=== PATIENT | female | born 1940 | race Caucasian/White ===

== ENCOUNTER 2020-12-14 14:47 | Emergency (ER) | payer MEDICARE, SELFPAY ==
[2020-12-14 15:45] VITALS: BP 209/92; PULSE 72; RESP 16; TEMP 36.9; O2SAT 95; BMI 27.3
[2020-12-14 15:52] VITALS: O2SAT 95
--- NOTE | 2020-12-14 16:00 | XRR_ITS ---
PROCEDURE INFORMATION: Exam: XR Nasal Bones Exam date and time: 12/14/2020 4:09 PM Age: 80 years old Clinical indication: Injury or trauma; Fall; Blunt trauma (contusions or hematomas); Injury details: PT tripped and fell over a piece of wood and landed on another piece of wood. Slight pain in nose with laceration to the top TECHNIQUE: Imaging protocol: XR of the nasal bones. Views: Minimum of 3 views COMPARISON: CT head wo con* [id number] 04/21/2017 4:23 PM FINDINGS: Sinuses: Well aerated. No opacification. Bones/joints: Bones are intact and in normal alignment. Dental: Multiple dental crowns and fillings. Soft tissues: Unremarkable. XR/XR nasal bones min 3V [id number] IMPRESSION: No fracture identified.
--- NOTE | 2020-12-14 16:01 | ED_ITS ---
HPI - Head Injury General: Chief complaint: Head Injury Stated complaint: fall, facial lac Time Seen by Provider: 12/14/20 15:51 History of Present Illness: HPI Narrative: Nasal laceration OCD or any other related problems patient tripped in the yard today striking piece of wood with her nose. Has a laceration to her nose. Denies any other problems. Is currently under treatment for hypertension did take her medicine this morning and blood pressure normally runs 140/80 she states. MD Complaint: other Onset (ago): minute(s) Mechanism of Injury: fall Place: home Loss of Consciousness: no Severity: mild Severity scale (1-10): 1 Radiation: none Other Injuries: none Associated symptoms: Reports no associated symptoms; Deny nausea or vomiting Review of Systems Narrative: No neck or head pain Const: Denies: fever(s), chills or body aches Eyes: Denies: change in vision or blurry vision ENMT: Denies: throat pain or nasal congestion Card: Denies: chest pain or dyspnea on exertion Resp: Denies: dyspnea, productive cough or non-productive cough GI: Denies: abdominal pain, nausea or vomiting Musc: Denies: extremity pain Skin/Breast: Reports: other (Laceration of nose and abrasion also.); Denies: rash Neuro: Denies: headache(s) Psych: Denies: anxiety or depression Nikita/Lymph: Denies: easy bruising Physical Exam Const: COMMON NORMALS: no acute distress, average body habitus and patient oriented x3 HENMT: COMMON NORMALS: normocephalic HEAD & SCALP: normal to inspection and normocephalic FACE & SINUS: normal facial exam NOSE: Other nasal findings present (Abrasion to nose plus laceration. Nose appears slightly ajar. Mild tender); no Epistaxis present Eye: COMMON NORMALS: conjunctivae normal GENERAL EYE: appearance normal, both eyes and all related structures CONJUNCTIVA: Yes conjunctivae normal Neck/C-Spine: COMMON NORMALS: no JVD Chest: COMMONS NORMALS: normal inspection of the chest Resp: COMMON NORMALS: normal respiratory effort and clear to auscultation bilaterally AUSCULTATION: clear to auscultation bilaterally Cardio: COMMON NORMALS: no JVD, regular rate and regular rhythm RATE: regular rate RHYTHM: regular rhythm GI: COMMON NORMALS: Normal to inspection, nondistended, normoactive bowel sounds present Extremity: COMMON NORMALS: normal to inspection and full ROM Neuro: COMMON NORMALS: patient oriented x3, moves all extremities, no focal motor deficits and no sensory deficits noted Skin: NARRATIVE SKIN EXAM: Laceration across bridge of nose slightly irregular approximately inch tension quarter in length no active bleeding Procedures Laceration Laceration 1: Site: face Size (cm): 4 Description: linear and irregular Depth: simple, single layer Skin layer closed with: other (Skin adhesive) Course Vital Signs: Vital signs: Vital Signs Temperature 98.4 F 12/14/20 15:45 Pulse Rate 72 12/14/20 15:45 Respiratory Rate 16 12/14/20 15:45 Blood Pressure 209/92 12/14/20 15:45 Pulse Oximetry 95 12/14/20 15:52 MDM - Head Injury MDM Narrative: Medical decision making narrative: Laceration to bridge of nose. No head injury noted. Radiology report not back on whether his nasal fracture not might be a slight displacement underneath the laceration. No active bleeding going on Discharge Plan Discharge Patient Disposition: Home Clinical Impression: Laceration Fall Qualifiers: Encounter type: initial encounter Qualified Code(s): W19.XXXA - Unspecified fall, initial encounter Condition: Stable Discharge Orders: Discharge ED (Routine); Ordered 12/14/20 Ordered By: Omkar Hinojosa Referrals: Angelo Schrader DO [Primary Care Provider] - Discharge Diet: Usual diet Discharge Activity: Resume usual activity Patient Instructions: Skin Adhesive Care (ED) Activity Restrictions/Additional Instructions: Follow-up your primary care provider as needed keep area clean. Radiology will contact you if there is any discrepancies found in the nasal bone x-ray. Apply ice area as needed. Coding Level of Care Code ED Commercial Instructor Supervisor for Fina Fwd Exam Comprehensive
[2020-12-14 16:50] VITALS: BP 196/81; PULSE 65; RESP 18; O2SAT 93
== END 2020-12-14 16:51 | disposition home or self-care (01) ==
PROVIDERS: Emergency Provider Nurse Practitioner Family; PCP Internal Medicine
DX: S01.21XA Laceration without foreign body of nose, initial encounter (principal); W01.198A Fall on same level from slipping, tripping and stumbling with subsequent striking against other object, initial encounter
CPT/HCPCS: 12013; 70160; 99282

== ENCOUNTER 2021-05-22 15:22 | Inpatient (IN) | payer MEDICARE, SELFPAY ==
[2021-05-22] VITALS (45 sets, daily range): BP systolic 102–143; BP diastolic 50–108; PULSE 53–175; RESP 10–30; TEMP 36.6–36.8; O2SAT 89–98; BMI 25.8
--- NOTE | 2021-05-22 15:26 | ECG_ITS ---
[facility] Test Date: 2021-05-22 Pat Name: Meghana Ramirez Department: Room: Gender: Female House Coordinator: : 1940 Requested By: Raza Howard Order Number: [id number] Kelechi MD: Shelly Baker M.D. Measurements Intervals [place] Rate: 160 P: [place]: QRS: 15 QRSD: 85 T: 53 QT: 280 QTc: 458 Interpretive Statements ATRIAL FIBRILLATION WITH RAPID VENTRICULAR RESPONSE MINIMAL VOLTAGE CRITERIA FOR LVH, CONSIDER NORMAL VARIANT [MEETS CRITERIA IN ONE OF: R(aVL), S(V1), R(V5), R(V5/V6)+S(V1)] ST DEPRESSION, CONSIDER SUBENDOCARDIAL INJURY [0.1+ mV ST DEPRESSION] CRITICAL TEST RESULT Compared to ECG 04/21/2017 17:29:51 ST (T wave) deviation now present Sinus rhythm no longer present T-wave abnormality no longer present Electronically Signed On 05-23-2021 7:29:55 DIRECT CHILL CASTER by Shelly Baker M.D. [email or web address].[employer]/store/[id number] coffman
--- NOTE | 2021-05-22 15:41 | XRR_ITS ---
PROCEDURE INFORMATION: Exam: XR Chest Exam date and time: 05/22/2021 3:41 PM Age: 81 years old Clinical indication: Patient HX: Chest fluttering; Elevated hr; Additional info: Dyspnea/cough TECHNIQUE: Imaging protocol: XR of the chest. Views: 1 view. COMPARISON: CR Chest 1 [place] [id number] 04/21/2017 2:25 PM FINDINGS: Lungs: Unremarkable. No consolidation. Pleural spaces: Unremarkable. No pleural effusion. No pneumothorax. Heart/Mediastinum: Borderline cardiomegaly. Bones/joints: Unremarkable. XR/XR chest 1V portable [id number] IMPRESSION: Borderline cardiomegaly, lungs are clear Radiation Dose CTDIVOL = (mGy): DLP = (mGy-cm)
[2021-05-22 15:50] LABS: Basophils % 0.5 %; Eosinophils # 0.1 10^3/uL (0.0-0.8); Eosinophils % 1.4 %; Hematocrit 50.1 % (37.0-47.0); Hemoglobin 16.6 g/dL (11.5-15.3); Lymphocytes # 1.5 10^3/uL (0.8-4.8); Lymphocytes % 20.5 %; Mean Corpuscular HGB Conc 33.1 g/dL (30.0-36.0); Mean Corpuscular Hemoglobin 29.9 pg (28.0-34.0); Mean Corpuscular Volume 90.1 fl (81-99); Mean Platelet Volume 10.5 fL (7.4-10.4); Monocytes # 0.7 10^3/uL (0.2-0.9); Neutrophils # 5.02 10^3/uL (1.8-7.7); Neutrophils % 68.3 %; Nucleated Red Blood Cells % 0 %; Platelet Count 225 10^3/cmm (130-400); Red Blood Count 5.56 10^6/uL (4.1-5.3); Red Cell Distribution Width 13.7 % (12.1-15.1); White Blood Count 7.4 10^3/uL (4.0-10.0)
[2021-05-22 16:28] LABS: Alanine Aminotransferase 24 U/L (0-33); Albumin Level 4.2 g/dL (3.5-5.2); Alkaline Phosphatase 75 IU/L (35-105); Anion Gap 16.1 (5-19); Aspartate Amino Transferase 25 U/L (0-32); Blood Urea Nitrogen 12 mg/dL (8-23); Calcium 9.6 mg/dL (8.5-10.5); Carbon Dioxide 28 mmol/L (22-29); Chloride 98 mmol/L (98-107); Globulin 3.1 g/dL (1.3-4.6); Glucose 165 mg/dL (65-115); Osmolality Calculated 291 mOsm/kg (285-295); Potassium 3.1 mmol/L (3.5-5.1); Sodium 139 mmol/L (136-145); Thyroid Stimulating Hormone 2.35 uIU/mL (0.27-4.20); Total Bilirubin 0.6 mg/dL (0.15-1.2); Total Protein 7.3 g/dL (6.6-8.7)
--- NOTE | 2021-05-22 16:35 | ED_ITS ---
HPI - Chest Pain General: Chief Complaint: Chest Pain Stated Complaint: Fluctuating HR, Dizzy, Pain in R Shoulder and Arm Time Seen by Provider: 05/22/21 15:32 History of Present Illness: HPI narrative: 81-year-old female presents to the emergency room with complaints of fluctuating heart rate dizziness. She has been having this last couple weeks once a weeks of an episode. It is associated with rapid heart rate and discomfort radiating to the neck and bilateral into the shoulders. She has not previously been evaluated for that she has no known history of atrial fibrillation. Not previously in cardiac evaluation she is borderline diabetic and is monitored controlled by diet through primary care provider. Is not had any weakness visual difficulty or speech difficulty. MD complaint: chest pain and chest heaviness Onset (ago): week(s) Timing of current episode: episodic Prior episodes: Yes Onset: during rest Pain location: left chest Pain radiation: right arm, left arm and neck Severity: moderate Quality: tightness, aching and heaviness Relieving factors: nothing Exacerbating factors: nothing Associated symptoms: Deny abdominal pain, diaphoresis, dyspnea, fever(s), leg edema, nausea, palpitations, sense of impending doom, syncope or vomiting Treatment prior to arrival: none Review of Systems Const: Denies: fever(s) or diaphoresis ENMT: Denies: throat pain, ear or mastoid pain, nasal discharge or nasal congestion Card: Denies: palpitations or syncope Resp: Denies: dyspnea GI: Denies: abdominal pain, nausea or vomiting : Denies: flank pain, difficulty voiding, dysuria, urinary frequency or urinary urgency Skin/Breast: Denies: rash or pruritus FORMERLY [facility], 1928–1983 ED PFSH: Medical History (Updated 05/25/21 @ 08:50 by Raza Allan DO) Atrial fibrillation with RVR Diet-controlled diabetes mellitus Hypertension Hypokalemia Left arm pain Near syncope Physical Exam Const: COMMON NORMALS: no acute distress GENERAL APPEARANCE: cooperative and comfortable ORIENTATION/CONSCIOUSNESS: Yes awake, Yes oriented to person, Yes oriented to place and Yes oriented to time HENMT: COMMON NORMALS: normocephalic, atraumatic and hearing grossly normal bilaterally HEAD & SCALP: normocephalic and atraumatic Neck/C-Spine: COMMON NORMALS: no JVD Resp: COMMON NORMALS: normal respiratory effort, No retractions, No use of accessory muscles and clear to auscultation bilaterally AUSCULTATION: clear to auscultation bilaterally Cardio: COMMON NORMALS: no JVD RATE: tachycardic RHYTHM: abnormal rhythm irregularly irregular GI: COMMON NORMALS: Soft to palpation and No hepatosplenomegaly present AUSCULTATION: Yes normoactive bowel sounds PALPATION: Yes Soft to palpation, No Tenderness to palpation present (GI), No Guarding due to palpation present (GI) and Yes No hepatosplenomegaly present Extremity: COMMON NORMALS: normal to inspection, capillary refill normal, no clubbing, cyanosis or edema, no calf tenderness and no pedal edema Neuro: SENSORIUM/ORIENTATION: Yes oriented to person, Yes oriented to place and Yes oriented to time Skin: COMMON NORMALS: no rashes or lesions noted GENERAL SKIN EXAM: no rashes or lesions noted Course Vital Signs: Vital signs: Vital Signs Temperature 98.7 F 05/24/21 15:20 Pulse Rate 58 L 05/24/21 15:20 Respiratory Rate 15 05/24/21 15:20 Blood Pressure 151/70 05/24/21 15:20 Pulse Oximetry 100 05/24/21 15:20 MDM - Chest Pain MDM Narrative: Medical decision making narrative: Patient presents with A. fib with RVR rate controlled with IV Cardizem. She is having some chest discomfort as well overall she is stable. We will go ahead and admit the patient and proceed with further work-up. Discussed with hospitalist orders have been written. Lab Data: Labs: Lab Results 05/22/21 05/22/21 15:40 15:40 WBC 7.4 10^3/uL 10^3/ uL (4.0-10.0) RBC 5.56 10^6/uL H 10 ^6/uL (4.1-5.3) Hgb 16.6 g/dL H g/dL (11.5-15.3) Hct 50.1 % H % (37.0-47.0) MCV 90.1 fl fl (81-99) MCH 29.9 pg pg (28.0-34.0) MCHC 33.1 g/dL g/dL (30.0-36.0) RDW 13.7 % % (12.1-15.1) Plt Count 225 10^3/cmm 10^3 /cmm (130-400) MPV 10.5 fL H fL (7.4-10.4) Neut % (Auto) 68.3 % % Lymph % (Auto) 20.5 % % Brown % (Auto) 9.0 % % Eos % (Auto) 1.4 % % Baso % (Auto) 0.5 % % Neut # (Auto) 5.02 10^3/uL 10^3 /uL (1.8-7.7) Lymph # (Auto) 1.5 10^3/uL 10^3/ uL (0.8-4.8) Brown # (Auto) 0.7 10^3/uL 10^3/ uL (0.2-0.9) Eos # (Auto) 0.1 10^3/uL 10^3/ uL (0.0-0.8) Baso # (Auto) 0.0 10^3/uL 10^3/ uL (0.0-0.1) Nucleated RBC % (a uto) 0 % % Nucleated RBCs # 0.0 /100WBC /100W BC Sodium 139 mmol/L mmol/L (136-145) Potassium 3.1 mmol/L L mmol /L (3.5-5.1) Chloride 98 mmol/L mmol/L (98-107) Carbon Dioxide 28 mmol/L mmol/L (22-29) Anion Gap 16.1 (5-19) BUN 12 mg/dL mg/dL (8-23) Creatinine 0.4 mg/dL L mg/dL (0.5-0.9) GFR Calculation Not Reportable Glucose 165 mg/dL H mg/dL (65-115) Calculated Osmolal ity 291 mOsm/kg mOsm/ kg (285-295) Calcium 9.6 mg/dL mg/dL (8.5-10.5) Total Bilirubin 0.6 mg/dL mg/dL (0.15-1.2) AST 25 U/L U/L (0-32) ALT 24 U/L U/L (0-33) Alkaline Phosphata se 75 IU/L IU/L (35-105) Total Protein 7.3 g/dL g/dL (6.6-8.7) Albumin 4.2 g/dL g/dL (3.5-5.2) Globulin 3.1 g/dL g/dL (1.3-4.6) TSH 2.35 uIU/mL uIU/m L (0.27-4.20) Discharge Plan Discharge Patient Disposition: Admitted As Inpatient Admit Provider: Leon Cuadra Clinical Impression: Atrial fibrillation with rapid ventricular response, Chest pain, Hypertension Condition: Stable Discharge Diet: Regular Discharge Activity: Resume usual activity Coding Level of Care Code ED Property Condition Assessor for Chg Fwd Exam Comprehensive
--- NOTE | 2021-05-22 19:18 | ECG_ITS ---
[facility] Test Date: 2021-05-22 Pat Name: Meghana Ramirez Department: Room: 111 Gender: Female Model Maker Apprentice: : 1940 Requested By: Leon Cudara Order Number: [id number] Lorenz MD: Shelly Baker M.D. Measurements Intervals [place] Rate: 70 P: 35 IN: 158 QRS: -2 QRSD: 87 T: 30 QT: 423 QTc: 459 Interpretive Statements SINUS RHYTHM NONSPECIFIC T-WAVE ABNORMALITY Compared to ECG 05/22/2021 15:35:43 T-wave abnormality now present Atrial fibrillation no longer present ST (T wave) deviation no longer present Electronically Signed On 05-23-2021 7:36:50 WOOD CARVER HAND by Shelly Baker M.D. [id number]
--- NOTE | 2021-05-22 19:19 | PM.HP ---
Providers/Chief Complaint Admitting Physician: Leon Cuadra MD Primary Care Provider: Angelo Schrader DO Chief Complaint: Fluctuating HR, Dizzy, Pain in R Shoulder and Arm History of Present Illness Meghana Ramirez is a 81 year old female with past medical history of hypertension compliant with medication, came in with chief complaint of palpitation, and wide variation in heart rate monitored on her pulse ox at home, going on for last couple of weeks, according to the patient sometimes the heart rate can be as high as 150 and then can settle down to as low/60s.These episodes are happening once or twice a week during these episodes she has dizziness, left-sided arm and neck pain, occasionally also has headache. Upon arrival in the ER she was worked up for above-mentioned complaint. EKG: A. fib with RVR with rate of 160. X-ray chest: Unremarkable Patient was started on Cardizem drip in the ER Review of Systems Const: Denies: fever(s), chills, body aches, change in appetite or diaphoresis Card: Denies: swelling of feet/ankles, dyspnea on exertion, orthopnea or leg pain with exertion Resp: Denies: dyspnea, productive cough, wheezing or pain on inspiration GI: Denies: abdominal pain, nausea, vomiting, diarrhea or constipation : Denies: flank pain Musc: Denies: back pain, extremity pain or extremity swelling Neuro: Denies: difficulty walking or confusion Medications/Allergies Home Medications Medication Instructions Recorded Confirmed Last Taken Type Ctu-Kaa-Sjjp Tabs 1 tab PO BEDTIME 05/22/21 05/22/21 Unknown History ascorbic acid (vitamin C) [Vitamin 500 mg PO QAM 05/22/21 05/22/21 05/22/21 History C] aspirin [Aspir-81] 81 mg PO QAM 05/22/21 05/22/21 05/22/21 History coenzyme Q10 [CoQ-10] 100 mg PO QAM 05/22/21 05/22/21 Unknown History hydrochlorothiazide 12.5 mg PO QAM 05/22/21 05/22/21 05/22/21 08:00 History Allergies Allergy/AdvReac Type Severity Reaction Status Date / Time No Known Allergies Allergy Verified 05/22/21 16:14 Vitals/I&O/Wt Last Vital Signs Temp 98.2 F 05/22/21 15:28 Pulse 63 05/22/21 19:00 Resp 22 H 05/22/21 19:00 BP 102/70 05/22/21 19:00 Pulse Ox 98 05/22/21 19:00 05/22/21 05/22/21 05/22/21 06:59 14:59 22:59 Intake Total 7.334 / 7.334 Balance 7.334 / 7.334 Weight last 48 hrs Weight 74.843 kg Physical Exam Const: COMMON NORMALS: patient oriented x3 HENMT: COMMON NORMALS: normocephalic and atraumatic HEAD & SCALP: normocephalic and atraumatic Resp: COMMON NORMALS: clear to auscultation bilaterally AUSCULTATION: clear to auscultation bilaterally Cardio: COMMON NORMALS: regular rate, regular rhythm, S1 normal heart sound present, S2 normal heart sound present, No gallops present (Cardio), No murmurs present (Cardio), No rub (Cardio) and Peripheral pulses 2+ throughout RATE: regular rate RHYTHM: regular rhythm HEART SOUNDS: S1 normal heart sound present and S2 normal heart sound present PERIPHERAL PULSES: Peripheral pulses 2+ throughout GI: COMMON NORMALS: Normal to inspection, nondistended, normoactive bowel sounds present, Soft to palpation, non-tender, No hepatosplenomegaly present and no masses AUSCULTATION: Yes normoactive bowel sounds PALPATION: Yes Soft to palpation and Yes No hepatosplenomegaly present RECTAL EXAM: deferred Extremity: COMMON NORMALS: no clubbing, cyanosis or edema and no pedal edema Neuro: COMMON NORMALS: patient oriented x3 Data : 05/22/21 15:40 05/22/21 15:40 A&P Assessment and plan (1) Atrial fibrillation with RVR: New onset A. fib with RVR 2D echo: TSH:2.57 Continue Cardizem drip Cardizem 30 mg p.o. every 6 Eliquis 5 mg every 12 hours daily Telemetry monitoring k>4, mg>2 Status: Acute (2) Hypertension: Currently blood pressure is well controlled Continue to monitor Status: Acute Attestations Medical Necessity Statement*: Patient needs to be in hospital for management of A. fib with RVR. Anticipated length of stay greater than 2 midnights Coding Level of Care Code Acute [place] Helper for [facility] Fwd Diagnoses Atrial fibrillation with RVR I48.91 Hypertension I10
[2021-05-22] MEDS: apixaban 5 mg Tablet PO (20:26)
[2021-05-22] MEDS: sotalol 80 mg Tablet PO (20:26)
[2021-05-22 22:00] LABS: Urine Color Yellow (Yellow); pH Urine 5 (5-7)
[2021-05-22 22:01] LABS: Add Urine Microscopic? YES; Bilirubin Urine Neg (Negative); Blood Urine 2+ (Negative); Glucose Urine UA Norm (Normal); Ketones Urine Negative (Negative); Leukocyte Esterase Urine Trace (Negative); Nitrate Urine Negative (Negative); Protein Urine Trace (Negative); Urobilinogen Urine Norm (Negative)
[2021-05-22 22:02] LABS: Add Urine Culture? Yes; Bacteria Urine 4+ /hpf; Squamous Epithelial Cell Urine RARE /hpf (0-5); WBC Urine 25-40 /hpf (0-5)
--- NOTE | 2021-05-22 22:30 | ECG_ITS ---
[facility] Test Date: 2021-05-22 Pat Name: Meghana Ramirez Department: Room: 111 Gender: Female Ingot Weigher: : 1940 Requested By: Leon Cuadra Order Number: [id number] Kelechi MD: Carmel Reyes M.D. Measurements Intervals [place] Rate: 53 P: 63 NV: 181 QRS: 19 QRSD: 86 T: 68 QT: 430 QTc: 405 Interpretive Statements SINUS BRADYCARDIA NONSPECIFIC T-WAVE ABNORMALITY Compared to ECG 05/22/2021 20:21:02 Sinus rhythm no longer present T-wave abnormality still present Electronically Signed On 05-23-2021 20:39:53 HEALTH PROGRAM MANAGER by Carmel Reyes M.D. [email or web address] [email or web address] [email or web address] st. [email or web address] medical [email or web address]/[id number]
[2021-05-23] VITALS (10 sets, daily range): BP systolic 118–190; BP diastolic 51–81; PULSE 47–61; RESP 15–22; TEMP 36.2–37.1; O2SAT 93–98
[2021-05-23] MEDS: aspirin 81 mg EC Tablet PO (03:28)
[2021-05-23 04:03] LABS: Basophils % 0.6 %; Eosinophils # 0.2 10^3/uL (0.0-0.8); Eosinophils % 2.2 %; Hematocrit 43.8 % (37.0-47.0); Hemoglobin 14.3 g/dL (11.5-15.3); Lymphocytes # 1.6 10^3/uL (0.8-4.8); Lymphocytes % 23.5 %; Mean Corpuscular HGB Conc 32.6 g/dL (30.0-36.0); Mean Corpuscular Hemoglobin 29.4 pg (28.0-34.0); Mean Corpuscular Volume 89.9 fl (81-99); Mean Platelet Volume 10.5 fL (7.4-10.4); Monocytes # 0.7 10^3/uL (0.2-0.9); Neutrophils # 4.36 10^3/uL (1.8-7.7); Neutrophils % 63.4 %; Nucleated Red Blood Cells % 0 %; Platelet Count 202 10^3/cmm (130-400); Red Blood Count 4.87 10^6/uL (4.1-5.3); Red Cell Distribution Width 13.9 % (12.1-15.1); White Blood Count 6.9 10^3/uL (4.0-10.0)
[2021-05-23 04:42] LABS: Troponin T (5th) Once 40 ng/L (0-10)
[2021-05-23 04:43] LABS: Alanine Aminotransferase 17 U/L (0-33); Albumin Level 3.5 g/dL (3.5-5.2); Alkaline Phosphatase 59 IU/L (35-105); Anion Gap 13.2 (5-19); Aspartate Amino Transferase 17 U/L (0-32); Blood Urea Nitrogen 22 mg/dL (8-23); Calcium 8.9 mg/dL (8.5-10.5); Carbon Dioxide 27 mmol/L (22-29); Chloride 105 mmol/L (98-107); Globulin 2.2 g/dL (1.3-4.6); Glucose 141 mg/dL (65-115); Magnesium 2.3 mg/dL (1.7-2.3); NT Pro B Type Natriuretic Pept 823 pg/mL (0-450); Osmolality Calculated 300 mOsm/kg (285-295); Potassium 3.2 mmol/L (3.5-5.1); Sodium 142 mmol/L (136-145); Total Bilirubin 0.8 mg/dL (0.15-1.2); Total Protein 5.7 g/dL (6.6-8.7)
--- NOTE | 2021-05-23 07:44 | ECG_ITS ---
[facility] Test Date: 2021-05-23 Pat Name: Meghana Ramirez Department: Room: 111 Gender: Female Employment Training Specialist: : 1940 Requested By: Leon Cuadra Order Number: [id number] Kelechi MD: Carmel Reyes M.D. Measurements Intervals [place] Rate: 57 P: 40 ME: 170 QRS: 12 QRSD: 89 T: 76 QT: 492 QTc: 483 Interpretive Statements SINUS BRADYCARDIA ST DEVIATION AND MODERATE T-WAVE ABNORMALITY, CONSIDER LATERAL ISCHEMIA [-0.1+ mV T WAVE IN I/aVL/V5/V6] Compared to ECG 05/22/2021 22:54:56 Possible ischemia now present T-wave abnormality still present Electronically Signed On 05-23-2021 20:40:40 CALIBRATION CHECKER by Carmel Reyes M.D. [email or web address] sunflower medical centerP-Commercekettering [facility] day[facility].[email or web address]/[id number]
[2021-05-23] MEDS: sotalol 80 mg Tablet 40 MG PO ×2 (08:34→20:41)
[2021-05-23] MEDS: hydroCHLOROthiazide 25 mg Tablet 12.5 MG PO (08:34)
[2021-05-23] MEDS: apixaban 5 mg Tablet PO (08:34)
--- NOTE | 2021-05-23 08:53 | PM.CONSULT ---
Providers/Reason For Consult Consulting Physician/Specialty*: NARGIS Reyes MD/cardiology Reason for Consult*: Patient with a new onset of atrial fibrillation, tachybradycardia arrhythmias Requesting Physician: Dr. Cuadra Attending Physician: Leon Cuadra MD Primary Care Provider: Angelo Schrader DO History of Present Illness History of Present Illness Meghana Ramirez is a 81 year old female, is admitted to the hospital through the emergency room, where she presented with complaints of fluctuating heartbeats associated with the dizziness/left arm pain/pressure. Patient apparently has a history of high blood pressure for the last 10 years or so. She also has a diet-controlled diabetes. For the last couple of weeks, she has been having episodes where she was found to have heart rate ranging anywhere from 50-1 60 on the pulse oximetry. She had this pulse with no rhyme or reason. When the heart rate goes into the 160s, she feels pain/pressure on the left shoulder, left side of the neck and also left arm. Soon after the heart rate comes down to the baseline, the symptoms goes away. These spells may last for several minutes. Some days she may feel like going to pass out. She apparently presented to the emergency room 2 times in the past, a year apart for similar complaints. The first episode was 3 years ago. She was found to have low potassium at that time. She was wanting to see a telephone maintenance mechanic for these complaints but apparently did not materialize. This is the third time that she is coming to the hospital with similar complaints. She never been diagnosed with atrial fibrillation or any cardiac arrhythmia before. But according the patient, her symptoms were similar. She has no previous history for coronary disease, myocardial infarction or congestive heart failure. No significant family history for atherosclerotic heart disease or cardiac arrhythmia. She was found to be in atrial fibrillation rapid ventricular rate in the emergency room. She was given IV Cardizem. She spontaneously converted to sinus rhythm/sinus bradycardia. She was started on Betapace in the hospital. The heart rate was running in the 50s and 60s. She also had some QTC prolongation in the EKG. The dose of the Betapace was cut back to 40 mg this morning. Patient has not had any recurrence of left arm pain since the heart rate returned to the baseline. Patient has a history of hypokalemia ever since she started taking the HCTZ. She has been taking potassium supplements at home Review of Systems Narrative: CONSTITUTIONAL: No fever or chills. EYES: No blurring of vision or other visual disturbances lately. ENT: No hoarseness of voice, auditory disturbances or sore throat. CARDIOVASCULAR: As mentioned above. RESPIRATORY: No significant cough. GASTROINTESTINAL: No hematemesis or melena. GENITOURINARY: No dysuria or hematuria. INTEGUMENTARY: No skin rashes or history of skin cancer. NEURO: No transient ischemic attacks or amaurosis. PSYCHIATRIC: No history of psychosis or major depression. HEMATOLOGIC: No bleeding disorders or significant anemia. ENDOCRINE: No history of polyuria or polydipsia. MUSCULOSKELETAL: She had a recent fall, tripping on something in her yard and sustained minimal contusions on the face. ALLERGY/IMMUNOLOGY: As mentioned above. Meds/Allergies Home Medications and Allergies Home Medications Medication Instructions Recorded Confirmed Last Taken Type Ugp-[id number]-Qsfy Tabs 1 tab PO BEDTIME 05/22/21 05/22/21 Unknown History ascorbic acid (vitamin C) [Vitamin 500 mg PO QAM 05/22/21 05/22/21 05/22/21 History C] aspirin [Aspir-81] 81 mg PO QAM 05/22/21 05/22/21 05/22/21 History coenzyme Q10 [CoQ-10] 100 mg PO QAM 05/22/21 05/22/21 Unknown History hydrochlorothiazide 12.5 mg PO QAM 05/22/21 05/22/21 05/22/21 08:00 History Allergies Allergy/AdvReac Type Severity Reaction Status Date / Time No Known Allergies Allergy Verified 05/22/21 16:14 Current Medications Current Medications Generic Name Dose Route Start Last Admin Trade Name Shyamq PRN Reason Stop Dose Admin Apixaban 5 mg 05/22/21 21:00 05/23/21 08:34 Apixaban 5 Mg Tablet PO 5 mg BID@0900,2100 KELLEN Administration Aspirin 81 mg 05/23/21 06:00 05/23/21 03:28 Aspirin 81 Mg Ec Tablet PO 81 mg QAM KELLEN Administration Hydrochlorothiazide 12.5 mg 05/23/21 09:00 05/23/21 08:34 Hydrochlorothiazide 25 Mg Tablet PO 12.5 mg DAILY KELLEN Administration Sotalol HCl 80 mg 05/22/21 21:00 05/23/21 08:13 Sotalol 80 Mg Tablet PO Not Given BID@0900,2100 [facility] PFSH Acute PFSH: Medical History (Updated 05/23/21 @ 11:05 by Carmel Reyes MD) Diet-controlled diabetes mellitus Hypertension Hypokalemia Near syncope Vitals/I&O/Wt Last Vital Signs Temp 98.7 F 05/23/21 07:36 Pulse 58 L 05/23/21 07:36 Resp 15 05/23/21 07:36 BP 164/81 05/23/21 07:36 Pulse Ox 98 05/23/21 07:36 05/22/21 05/23/21 05/23/21 22:59 06:59 14:59 Intake Total 51.251 / 51.251 300 / 351.251 Balance 51.251 / 51.251 300 / 351.251 Weight last 48 hrs Weight 176 lb Weight 176 lb Weight 165 lb Physical Exam Narrative: EXAM NARRATIVE: GENERAL: The patient is alert and oriented times three. Not in any acute distress. HEENT: No significant pallor, icterus or lymphadenopathy. The pupils are symmetrical. Healing ecchymosis on the right side of the face. Oral cavity: There are no mucous membrane lesions. Funduscopic examination: The disk margins appear to be sharp with no exudates or hemorrhages. NECK: Trachea appears to be central. No masses noted. No JVD or thyromegaly appreciated. No carotid bruit. RESPIRATORY: Chest is symmetrical. No intercostals muscle retraction or any accessory muscle activation. There is no chest wall tenderness. Breath sounds are heard bilaterally. No rales or rhonchi heard. No evidence of any consolidation. BREASTS: Deferred. HEART: The PMI could not be palpated. No palpable precordial events. S1 and S2 are normal. No S3 or S4 heard. No pericardial rub or any click heard. ABDOMEN: No vessel pulsations or distention. No tenderness. No organomegaly appreciated. No abdominal bruit. Bowel sounds are normally heard. : Deferred. RECTAL: Deferred. LYMPHATIC: No lymphadenopathy noted in the neck or groin. EXTREMITIES: No edema or cyanosis. No clubbing. The pulses are symmetrical bilaterally. The radial, femoral, dorsalis pedis and the posterior tibial pulses are palpated and found to be in good volume and amplitude. MUSCULOSKELETAL: No acute joint deformities or swelling SKIN: There are no significant scars or skin rash noted. NEUROPSYCHIATRIC: The patient is alert and oriented x3. Appears to be in a good mood. The higher functions are grossly within normal limits. No tremors or rigidity noted. Data Labs: Other Labs: Laboratory Last Values WBC 6.9 10^3/uL (4.0- 10.0) 05/23/21 03:17 RBC 4.87 10^6/uL (4.1 -5.3) 05/23/21 03:17 Hgb 14.3 g/dL (11.5-1 5.3) 05/23/21 03:17 Hct 43.8 % (37.0-47.0 ) 05/23/21 03:17 MCV 89.9 fl (81-99) 05/23/21 03:17 MCH 29.4 pg (28.0-34. 0) 05/23/21 03:17 MCHC 32.6 g/dL (30.0-3 6.0) 05/23/21 03:17 RDW 13.9 % (12.1-15.1 ) 05/23/21 03:17 Plt Count 202 10^3/cmm (130 -400) 05/23/21 03:17 MPV 10.5 fL (7.4-10.4 ) H 05/23/21 03:17 Neut % (Auto) 63.4 % 05/23/21 03:17 Lymph % (Auto) 23.5 % 05/23/21 03:17 [place] % (Auto) 10.0 % 05/23/21 03:17 Eos % (Auto) 2.2 % 05/23/21 03:17 Baso % (Auto) 0.6 % 05/23/21 03:17 Neut # (Auto) 4.36 10^3/uL (1.8 -7.7) 05/23/21 03:17 Lymph # (Auto) 1.6 10^3/uL (0.8- 4.8) 05/23/21 03:17 [place] # (Auto) 0.7 10^3/uL (0.2- 0.9) 05/23/21 03:17 Eos # (Auto) 0.2 10^3/uL (0.0- 0.8) 05/23/21 03:17 Baso # (Auto) 0.0 10^3/uL (0.0- 0.1) 05/23/21 03:17 Nucleated RBC % (a uto) 0 % 05/23/21 03:17 Nucleated RBCs # 0.0 /100WBC 05/23/21 03:17 Sodium 142 mmol/L (136-1 45) 05/23/21 03:17 Potassium 3.2 mmol/L (3.5-5 .1) L 05/23/21 03:17 Chloride 105 mmol/L (98-10 7) 05/23/21 03:17 Carbon Dioxide 27 mmol/L (22-29) 05/23/21 03:17 Anion Gap 13.2 (5-19) 05/23/21 03:17 BUN 22 mg/dL (8-23) 05/23/21 03:17 Creatinine 0.6 mg/dL (0.5-0. 9) 05/23/21 03:17 GFR Calculation Not Reportable 05/23/21 03:17 Glucose 141 mg/dL (65-115 ) H 05/23/21 03:17 Calculated Osmolal ity 300 mOsm/kg (285- 295) H 05/23/21 03:17 Calcium 8.9 mg/dL (8.5-10 .5) 05/23/21 03:17 Magnesium 2.3 mg/dL (1.7-2. 3) 05/23/21 03:17 Total Bilirubin 0.8 mg/dL (0.15-1 .2) 05/23/21 03:17 AST 17 U/L (0-32) 05/23/21 03:17 ALT 17 U/L (0-33) 05/23/21 03:17 Alkaline Phosphata se 59 IU/L (35-105) 05/23/21 03:17 Troponin T Gen 5 n g/L 40 ng/L (0-10) H 05/23/21 03:17 NT-Pro-B Natriuret Pep 823 pg/mL (0-450) H 05/23/21 03:17 Total Protein 5.7 g/dL (6.6-8.7 ) L D 05/23/21 03:17 Albumin 3.5 g/dL (3.5-5.2 ) 05/23/21 03:17 Globulin 2.2 g/dL (1.3-4.6 ) 05/23/21 03:17 TSH 2.35 uIU/mL (0.27 -4.20) 05/22/21 15:40 Urine Color Yellow (Yellow) 05/22/21 21:30 Urine Appearance Sl cloudy (CLEAR ) A 05/22/21 21:30 Urine pH 5 (5-7) 05/22/21 21:30 Ur Specific Gravit y 1.020 (1.005-1.0 30) 05/22/21 21:30 Urine Protein Trace (Negative) 05/22/21 21: Urine Glucose (UA) Norm (Normal) 05/22/21 21: Urine Ketones Negative (Negati ve) 05/22/21: Urine Blood 2+ (Negative) H 05/22/21: Urine Nitrate Negative (Negati ve) 05/22/21 21: Urine Bilirubin Neg (Negative) 05/22/21 21: Urine Urobilinogen Norm mg/dL (Negat janak) 05/22/21 21:30 Ur Leukocyte Louisa ase Trace (Negative) H 05/22/21 21:30 Urine RBC 10-15 /hpf (0-2) H 05/22/21: Urine WBC 25-40 /hpf (0-5) H 05/22/21 21:30 Ur Squamous Epith Cells Rare /hpf (0-5) 05/22/21 21: Amorphous Sediment Not Reportable 05/22/21: Urine Bacteria 4+ /hpf (NONE) H 05/22/21 21:30 Imaging^: Echo: My impression: Echocardiogram from 05/23/2021 Normal left ventricular size and systolic function, EF 56 %. Mild left ventricular hypertrophy. No regional wall motion abnormalities. Grade I/IV diastolic dysfunction (abnormal relaxation filling pattern), normal to mildly elevated filling pressures. Mild biatrial enlargement Moderate mitral annular calcification. Thickened aortic valve. Mild aortic valve regurgitation. Mild tricuspid regurgitation with the multiple regurgitant jets Mild pulmonary valve regurgitation. Estimated pulmonary artery peak systolic pressure was 26 mmHg There is no pericardial effusion. There are no intracardiac masses. No previous study is available for comparison. EKG^: EKG 1: My Interpretation: The EKG on 05/22/2021 revealed atrial fibrillation rapid ventricular rate of [address]-T changes, may suggest ischemia. Minimal voltage gradient for LVH. EKG 2: My Interpretation: EKG from 05/22/2021 normal sinus rhythm with a nonspecific T wave changes. QTC of 459. EKG 3: My Interpretation: EKG from 05/23/2021 sinus bradycardia with a rate of [address]-T changes in the anterolateral and high lateral leads. Prominent Q waves in leads V4 to V6. QTC of 483. A&P Assessment and plan (1) Atrial fibrillation with RVR: Patient is currently in sinus rhythm. She was started on Betapace. Her QTC this morning was 479. Need to monitor the QTC closely. May cut back the Betapace to 40 mg twice daily. The etiology of the atrial fibrillation is not clear. In view of her left-sided pain, possibility of underlying coronary ischemia causing this is a consideration. She requires further evaluation. Status: Acute (2) Left arm pain: Her left arm/shoulder/neck pain with a tacky arrhythmia, may suggest underlying coronary ischemia. For further evaluation of the patient's symptoms, a myocardial perfusion imaging would be appropriate. We may go ahead and do a Lexiscan/sestamibi/sestamibi stress test. This was discussed with the patient and her in detail which he understood well and consented to proceed. Status: Acute (3) Near syncope: Could be from the tachyarrhythmia. So far patient did not have any symptomatic bradycardia since hospital admission. Status: Acute (4) Hypertension: Currently the blood pressure is a stage II. The antihypertensive medications need to be optimized. Status: Acute Qualifiers: Hypertension type: primary hypertension Qualified Code(s): I10 - Essential (primary) hypertension (5) Hypokalemia: Her potassium is still 3.2. Apparently the patient had problems in tolerating the IV potassium. We may consider the p.o. at this point. Status: Acute Additional A&P Information Based on the patient's clinical progress and the results of the above, further recommendations will be made. Thank you for the opportunity to evaluate this patient and make these recommendations Consult Attestations Medical Necessity Statement: Patient is to be closely monitored on the telemetry bed with the high risk medication. Coding Level of Care Code Acute Mine Supervisor for [facility] Fwd History Detailed Exam Detailed Medical Decision Making High Complexity Diagnoses Atrial fibrillation with RVR I48.91 Left arm pain M79.602 Near syncope R55 Hypertension I10 Hypertension type: primary hypertension Hypokalemia E87.6
[2021-05-23] MEDS: lidocaine 1% 5 ML in potassium chloride premix 100 ML 25 ML IV (09:05)
[2021-05-23] MEDS: potassium chloride oral liq 20 mEq/15 mL UDC 40 MEQ PO (10:14)
--- NOTE | 2021-05-23 10:21 | PC.CHAP ---
Pastoral Care Encounter/Spiritual Assessment Type of Contact [] Declined drawer in jacquard loom visit [] Patient/Family/Request visit [] Outpatient visit [] Follow-up visit [] Physician referral [] Code/Alert [x] Routine visit [] Staff referral [] Actively dying [] Patient sleeping [] Family support [] [] Out of room [] Palliative care [] [] Receiving care in room [] Pre-surgical visit [] Trauma [] Long length of stay [] ICU visit [] Other: Relational/Emotional Strength [] Patient feels connected with others/family/visitors/staff [] Distress [] Loneliness/isolation [] Abandonment Spirituality of Patient [] Person of Leah [] Attends Christian of their Leah [] Believes in Prayer [] Reads Bible or Samaritan materials [] There are Spiritual issues to be addressed Cider Press Operator Interventions [x] Prayer [x] Active listening [x] Non-anxious presence [x] Spiritual/emotional support [] Crisis/trauma care [] Spiritual counseling [] Bereavement support [] Provided bereavement packet [] Provided Bible/devotional materials [] Provided toy/stuffed animal, coloring book to patient or family member [] Provided Communion [] Anointing/[place] [] Salvation [x] Completed spiritual assessment [] Other: Impact on Illness or Injury [] Angry [] Fearful [] Anxious [] Often cries [] Exhaustion [] Unable to work [] Unable to attend holiness [] Unable to walk/stand [] Unable to read [] Unable to drive [] Unable to eat/drink [] Unable to sleep [] Unable to be with family [] Patient intubated [] Other: Summary experiencing some discomfort with IV... visitor present.. Time spent with patient 5 min
--- NOTE | 2021-05-23 14:51 | ECG_ITS ---
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 Measurements Intervals Gray Rate: 59 P: 34 NE: 165 QRS: 14 QRSD: 93 T: 94 QT: 425 QTc: 423 Interpretive Statements SINUS BRADYCARDIA NONSPECIFIC T-WAVE ABNORMALITY Compared to ECG 05/23/2021 08:03:06 Possible ischemia no longer present T-wave abnormality still present Electronically Signed On 05-23-2021 20:50:58 CONTINUOUS MINER by Carmel Reyes M.D. [id number]
--- NOTE | 2021-05-23 16:42 | PM.PN ---
Subjective Subjective: Interval history: Patient was seen and examined this morning, continues to be normal sinus rhythm, lowest documented heart 47 while patient was asleep. Currently denies any active complaints.Her other vitals and labs have been reviewed. Medications: Reviewed: Yes Vitals/I&O/Wt Last Vital Signs Temp 98.2 F 05/23/21 15:16 Pulse 59 L 05/23/21 15:16 Resp 22 H 05/23/21 15:16 BP 190/70 05/23/21 15:16 Pulse Ox 93 05/23/21 15:16 05/23/21 05/23/21 05/23/21 06:59 14:59 22:59 Intake Total 300 / 351.251 13.75 / 13.75 Balance 300 / 351.251 13.75 / 13.75 Weight last 48 hrs Weight 79.832 kg Weight 79.832 kg Weight 74.843 kg Physical Exam Const: COMMON NORMALS: patient oriented x3 HENMT: COMMON NORMALS: normocephalic and atraumatic HEAD & SCALP: normocephalic and atraumatic Resp: COMMON NORMALS: clear to auscultation bilaterally AUSCULTATION: clear to auscultation bilaterally Cardio: COMMON NORMALS: regular rate, regular rhythm, S1 normal heart sound present, S2 normal heart sound present, No gallops present (Cardio), No murmurs present (Cardio), No rub (Cardio) and Peripheral pulses 2+ throughout RATE: regular rate RHYTHM: regular rhythm HEART SOUNDS: S1 normal heart sound present and S2 normal heart sound present PERIPHERAL PULSES: Peripheral pulses 2+ throughout GI: COMMON NORMALS: Normal to inspection, nondistended, normoactive bowel sounds present, Soft to palpation, non-tender, No hepatosplenomegaly present and no masses AUSCULTATION: Yes normoactive bowel sounds PALPATION: Yes Soft to palpation and Yes No hepatosplenomegaly present RECTAL EXAM: deferred Extremity: COMMON NORMALS: no clubbing, cyanosis or edema and no pedal edema Neuro: COMMON NORMALS: patient oriented x3 Data : 05/23/21 03:17 05/23/21 03:17 A&P Assessment and plan (1) Atrial fibrillation with RVR: New onset A. fib with RVR possible underlying tachybradycardia syndrome. Patient converted to normal sinus rhythm: Currently on sotalol received 80 mg p.o. at night. We will switch to sotalol 40 mg p.o. twice daily. Followed by 2-hour EKG monitoring after each dose, for corrected QTC monitoring. 2D echo: Normal LV size and systolic function, LVEF 56%, mild LVH, no RWMA , no gross valvular abnormality. TSH:2.57 Initially on Cardizem drip. Currently on Lovenox therapeutic Will discharge on Eliquis 5 mg every 12 hours daily. Telemetry monitoring k>4, mg>2 Appreciate cardiology inputs Status: Acute (2) Hypertension: Continue HCTZ 12.5 MG PO DAILY Status: Acute Qualifiers: Hypertension type: primary hypertension Qualified Code(s): I10 - Essential (primary) hypertension Additional A&P Information Left arm pain: Current plan is to rule out underlying coronary artery disease, patient is due for nuclear stress test in the morning. CODE STATUS: Full code DVT prophylaxis; on Lovenox Attestations Medical Necessity Statement*: Patient needs to be in hospital for above defined problems. Coding Level of Care Code Acute Insulator Technician for [facility] Fwd Diagnoses Atrial fibrillation with RVR I48.91 Hypertension I10 Hypertension type: primary hypertension
--- NOTE | 2021-05-23 19:12 | PC.NURSE ---
Shift Note Frequent safety and comfort rounds continue. Orders and/or nursing care completed as indicated. Patient monitored for response to intervention and treatment(s) on afib and htn. Pt remains on SR/SB HR in upper 50 to low 60s. No symptoms of dizziness, lightheadedness or pauses on the monitor. Education provided includes Sotalol, eliquis and hydralazine for BP control, and potassium supplement. Cardiology consult noted. Patient and/or safety representative verbalizes understanding. Will continue to monitor.
--- NOTE | 2021-05-23 19:14 | USCV_ITS ---
Meghana Ramirez Age: 81 Gender: F : 1940 Exam Date: 05/23/2021 06:14 Ordering Phys: Leon Cuadra MD Technologist: Exam [place] [facility] [place] Indication: CHEST PAIN BP: 118 / 51 HR: 53 Rhythm: Sinus Technical Quality: Adequate MEASUREMENTS (Male / Female) Normal Values 2D ECHO LV Diastolic Diameter PLAX 4.3 cm 4.2 - 5.9 / 3.9 - 5.3 cm LV Systolic Diameter PLAX 2.6 cm IVS Diastolic Thickness 1.5 cm 0.6 - 1.0 / 0.6 - 0.9 cm IVS Systolic Thickness 1.5 cm LVPW Diastolic Thickness 1.7 cm 0.6 - 1.0 / 0.6 - 0.9 cm LVPW Systolic Thickness 1.4 cm LVOT Diameter 2.0 cm LV Ejection Fraction 2D Teich 70.8 % LV Ejection Fraction MOD 2C 52.5 % LV Ejection Fraction 2C AL 54.1 % LA Diameter 3.7 cm LA Width 4.0 cm LA Height 4.1 cm RA Width 3.1 cm RA Height 5.0 cm Aorta at Sinotubular Diameter 2.1 cm M-MODE LV Diastolic Diameter MM 4.7 cm 4.2 - 5.9 / 3.9 - 5.3 cm LV Systolic Diameter MM 2.8 cm LV Ejection Fraction MM Teich 70.7 % IVS Diastolic Thickness MM 1.4 cm 0.6 - 1.0 / 0.6 - 0.9 cm IVS Systolic Thickness MM 2.2 cm LVPW Diastolic Thickness MM 1.3 cm 0.6 - 1.0 / 0.6 - 0.9 cm LVPW Systolic Thickness MM 1.8 cm RV Diastolic Diameter MM 1.9 cm DOPPLER AV Peak Velocity 140.0 cm/s LVOT Peak Velocity 134.0 cm/s AV Area Cont Eq vti 2.8 cm squared AV Area Cont Eq pk 2.9 cm squared MV Area PHT 5.0 cm squared Mitral E to A Ratio 1.1 MV E' Velocity 40.5 cm/s Mitral E to MV E' Ratio 15.0 Mitral E to LV E' Lateral Ratio 21.9 Mitral E to LV E' Septal Ratio 11.6 TR Peak Velocity 239.3 cm/s TR Peak Gradient 22.9 mmHg TV Peak E Velocity 89.0 cm/s Right Atrial Pressure 3.0 mmHg Pulmonary Artery Systolic Pressu 25.9 mmHg FINDINGS Left Ventricle Normal left ventricular size and systolic function, EF 56 %. Mild left ventricular hypertrophy. No regional wall motion abnormalities. Grade I/IV diastolic dysfunction (abnormal relaxation filling pattern), normal to mildly elevated filling pressures. Right Ventricle The right ventricle is normal in size and function. Right Atrium Mildly increased right atrial size. Left Atrium Mildly increased left atrial size. Mitral Valve Moderate mitral annular calcification. Aortic Valve Thickened aortic valve. Mild aortic valve regurgitation. Tricuspid Valve Multiple small regurgitant jets Pulmonic Valve Mild pulmonary valve regurgitation. Pericardium Normal pericardium without effusion. Aorta Plaque seen in the ascending aorta. CONCLUSIONS Normal left ventricular size and systolic function, EF 56 %. Mild left ventricular hypertrophy. No regional wall motion abnormalities. Grade I/IV diastolic dysfunction (abnormal relaxation filling pattern), normal to mildly elevated filling pressures. Mild biatrial enlargement Moderate mitral annular calcification. Thickened aortic valve. Mild aortic valve regurgitation. Mild tricuspid regurgitation with the multiple regurgitant jets Mild pulmonary valve regurgitation. Estimated pulmonary artery peak systolic pressure was 26 mmHg There is no pericardial effusion. There are no intracardiac masses. No previous study is available for comparison. Dr Carmel Reyes MD FACC (Electronically Signed) Final Date: 23 May 2021 10:46 S
[2021-05-23] MEDS: enoxaparin 80 mg/0.8 mL Syringe SUBCUT (20:41)
[2021-05-23] MEDS: zolpidem 5 mg Tablet PO (20:41)
[2021-05-23] MEDS: hyDRALAzine 25 mg Tablet PO (20:41)
[2021-05-24] VITALS (7 sets, daily range): BP systolic 110–151; BP diastolic 57–70; PULSE 46–63; RESP 14–25; TEMP 36.4–37.1; O2SAT 93–100
[2021-05-24 03:49] LABS: Basophils % 0.7 %; Eosinophils # 0.2 10^3/uL (0.0-0.8); Eosinophils % 3.4 %; Hematocrit 44.3 % (37.0-47.0); Hemoglobin 14.4 g/dL (11.5-15.3); Lymphocytes # 1.7 10^3/uL (0.8-4.8); Lymphocytes % 30.4 %; Mean Corpuscular HGB Conc 32.5 g/dL (30.0-36.0); Mean Corpuscular Hemoglobin 29.5 pg (28.0-34.0); Mean Corpuscular Volume 90.8 fl (81-99); Mean Platelet Volume 10.3 fL (7.4-10.4); Monocytes # 0.6 10^3/uL (0.2-0.9); Monocytes % 10.4 %; Neutrophils # 3.05 10^3/uL (1.8-7.7); Neutrophils % 54.9 %; Nucleated Red Blood Cells % 0 %; Platelet Count 193 10^3/cmm (130-400); Red Blood Count 4.88 10^6/uL (4.1-5.3); Red Cell Distribution Width 13.8 % (12.1-15.1); White Blood Count 5.6 10^3/uL (4.0-10.0)
[2021-05-24 04:12] LABS: Alanine Aminotransferase 17 U/L (0-33); Albumin Level 3.5 g/dL (3.5-5.2); Alkaline Phosphatase 58 IU/L (35-105); Anion Gap 14.6 (5-19); Aspartate Amino Transferase 16 U/L (0-32); Blood Urea Nitrogen 21 mg/dL (8-23); Calcium 8.7 mg/dL (8.5-10.5); Carbon Dioxide 25 mmol/L (22-29); Chloride 106 mmol/L (98-107); Globulin 2.2 g/dL (1.3-4.6); Glucose 155 mg/dL (65-115); Magnesium 2.2 mg/dL (1.7-2.3); Osmolality Calculated 300 mOsm/kg (285-295); Potassium 3.6 mmol/L (3.5-5.1); Sodium 142 mmol/L (136-145); Total Bilirubin 0.6 mg/dL (0.15-1.2); Total Protein 5.7 g/dL (6.6-8.7)
[2021-05-24] MEDS: aspirin 81 mg EC Tablet PO (05:56)
--- NOTE | 2021-05-24 07:04 | ECG_ITS ---
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 Interpretive Statements NAME OF STUDY: LEXISCAN SESTAMIBI STRESS TEST INDICATION: afib, PROCEDURE: At the baseline, the EKG revealed sinus bradycardia with a rate of 52 bpm. The baseline blood pressure was 162/87 mm Hg with a heart rate of 52 beats/min. Lexiscan was infused over a period of 20 seconds. A total of 0.4 milligrams of Lexiscan was infused. The stress phase was continued for a total of 5 minutes. Heart rate at the end of the stress phase was 52 with a blood pressure 103/60. The EKG at the peak infusion revealed no significant changes. Sestamibi was injected 20 seconds after the Lexiscan infusion. Blood pressure at the end of the recovery phase was 110/60 with a heart rate of 46 per minute. CONCLUSION: 1. No significant EKG changes with the LexiScan infusion 2. No LexiScan induced chest pain or cardiac arrhythmia 3. Normal blood pressure and heart rate response 4. Sestamibi/sestamibi perfusion scan pending; see separate report. Electronically Signed On 05-24-2021 23:33:13 FAMILY RESOURCE COORDINATOR by Carmel Reyes M.D. [id number]
--- NOTE | 2021-05-24 07:18 | PC.NURSE ---
per verbal order from dr nieto, exercise mibi changed to lexiscan.
[2021-05-24] MEDS: regadenoson 0.4 Mg/5 ml Syringe IVP (08:15)
[2021-05-24] MEDS: ondansetron 2 mg/ML SDV 2 mL 4 MG IVP (08:22)
--- NOTE | 2021-05-24 09:06 | ECG_ITS ---
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 Measurements Intervals [place] Rate: 54 P: 22 KS: 167 QRS: 5 QRSD: 89 T: 63 QT: 437 QTc: 417 Interpretive Statements SINUS BRADYCARDIA LEFT VENTRICULAR HYPERTROPHY AND ST-T CHANGE [VOLTAGE CRITERIA PLUS ST/T ABNORMALITY] Compared to ECG 05/23/2021 14:54:41 Left ventricular hypertrophy now present ST (T wave) deviation now present T-wave abnormality no longer present Electronically Signed On 05-24-2021 22:54:24 OXYGEN EQUIPMENT AIDE by Carmel Reyes M.D. [id number]
[2021-05-24] MEDS: potassium chloride ER 20 mEq Tablet 40 MEQ PO (09:20)
[2021-05-24] MEDS: hydroCHLOROthiazide 25 mg Tablet 12.5 MG PO (09:20)
[2021-05-24] MEDS: enoxaparin 80 mg/0.8 mL Syringe SUBCUT (09:22)
[2021-05-24] MEDS: sotalol 80 mg Tablet 40 MG PO (09:22)
[2021-05-24] MEDS: hyDRALAzine 25 mg Tablet PO ×2 (09:22→14:58)
--- NOTE | 2021-05-24 11:30 | ECG_ITS ---
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 Measurements Intervals [place] Rate: 58 P: 29 [place]: 160 QRS: 11 QRSD: 89 T: 47 QT: 468 QTc: 462 Interpretive Statements SINUS BRADYCARDIA Compared to ECG 05/24/2021 09:14:40 Left ventricular hypertrophy no longer present ST (T wave) deviation no longer present Electronically Signed On 05-24-2021 22:55:20 PROPERTY OFFICER by Carmel Reyes M.D. [id number]
--- NOTE | 2021-05-24 14:22 | PM.DCS ---
Discharge Providers Date of Admission: 05/22/21 20:08 Date of Discharge: May 24, 2021 Attending Provider at Admission: Leon Cuadra MD Attending Provider at Discharge: Leon Cuadra MD Primary Care Provider: Angelo Schrader DO Diagnoses at Discharge Discharge Diagnosis (1) Atrial fibrillation with RVR: Status: Acute (2) Hypertension: Status: Acute Qualifiers: Hypertension type: primary hypertension Qualified Code(s): I10 - Essential (primary) hypertension Reason for Visit Reason for Visit: Fluctuating HR, Dizzy, Pain in R Shoulder and Arm Hospital Course Hospital Course Meghana Ramirez is a 81 year old female with past medical history of hypertension compliant with medication, came in with chief complaint of palpitation, and wide variation in heart rate monitored on her pulse ox at home, going on for last couple of weeks, according to the patient sometimes the heart rate can be as high as 150 and then can settle down to as low/60s.These episodes are happening once or twice a week during these episodes she has dizziness, left-sided arm and neck pain, occasionally also has headache. Upon arrival in the ER she was worked up for above-mentioned complaint. EKG: A. fib with RVR with rate of 160. X-ray chest: Unremarkable. Patient was started on Cardizem drip in the ER. She was admitted for the management of new onset A. fib. Cardizem drip was stopped as the patient heart rate had slowed down, and she was intermittently going into normal sinus rhythm. Sotalol was started 2-hour EKG post sotalol dose was done, to monitor for corrected QTC. Patient remained in normal sinus rhythm during the hospital stay, she was discharged on sotalol 40 mg p.o. twice daily, she was started on Eliquis.Given the presentation of the patient cannot rule out underlying tachybradycardia syndrome. Since the patient was also complaining of left arm pain as well as neck pain She underwent nuclear stress test to rule out any underlying possible coronary artery disease. Lexiscan was normal. 2D echo: Normal LV size and systolic function, LVEF 56%, mild LVH,no RWMA, no gross valvular abnormality. During the hospital stay patient had no similar episode of dizziness.Patient responded well to above medical management and was discharged in stable condition to home. She will continue to follow her primary care physician As well as cardiology as an outpatient. Physical Exam Const: COMMON NORMALS: patient oriented x3 HENMT: COMMON NORMALS: normocephalic and atraumatic HEAD & SCALP: normocephalic and atraumatic Resp: COMMON NORMALS: clear to auscultation bilaterally AUSCULTATION: clear to auscultation bilaterally Cardio: COMMON NORMALS: regular rate, regular rhythm, S1 normal heart sound present, S2 normal heart sound present, No gallops present (Cardio), No murmurs present (Cardio), No rub (Cardio) and Peripheral pulses 2+ throughout RATE: regular rate RHYTHM: regular rhythm HEART SOUNDS: S1 normal heart sound present and S2 normal heart sound present PERIPHERAL PULSES: Peripheral pulses 2+ throughout GI: COMMON NORMALS: Normal to inspection, nondistended, normoactive bowel sounds present, Soft to palpation, non-tender, No hepatosplenomegaly present and no masses AUSCULTATION: Yes normoactive bowel sounds PALPATION: Yes Soft to palpation and Yes No hepatosplenomegaly present RECTAL EXAM: deferred Extremity: COMMON NORMALS: no clubbing, cyanosis or edema and no pedal edema Neuro: COMMON NORMALS: patient oriented x3 Discharge Data Data Completed and Pending: Completed Studies During Hospitalization Category Date Time Status Cardiac Stress Te st MIBI [Sestamibi Stress Test Reque st Exams 05/24/21 07:04 Draft ] Routine XR chest 1V precious ble [id number] Stat Exams 05/22/21 15:41 Completed NM yu perf SPECT r/s* [id number] Routin e Nuc Med 05/24/21 19:32 Completed CV. echo complete * [id number] Routine Ultrasound 05/23/21 19:14 Completed Pending at discharge Category Date Time Status Sestamibi Stress Test Request Routi ne Exams 05/23/21 19:32 Stop Req Complete Blood Co unt w/Auto AM LABS Lab 05/25/21 04:00 Ordered Comprehensive Met abolic Panel AM LA BS Lab 05/25/21 04:00 Ordered Magnesium AM LABS Lab 05/25/21 04:00 Ordered Urine Culture Sta t Lab 05/22/21 21:30 Results Labs from last 24 hours 05/24/21 05/24/21 03:30 03:30 WBC 5.6 RBC 4.88 Hgb 14.4 Hct 44.3 MCV 90.8 MCH 29.5 MCHC 32.5 RDW 13.8 Plt Count 193 MPV 10.3 Neut % (Auto) 54.9 Lymph % (Auto) 30.4 [place] % (Auto) 10.4 Eos % (Auto) 3.4 Baso % (Auto) 0.7 Neut # (Auto) 3.05 Lymph # (Auto) 1.7 [place] # (Auto) 0.6 Eos # (Auto) 0.2 Baso # (Auto) 0.0 Nucleated RBC % (a uto) 0 Nucleated RBCs # 0.0 Sodium 142 Potassium 3.6 Chloride 106 Carbon Dioxide 25 Anion Gap 14.6 BUN 21 Creatinine 0.6 GFR Calculation Not Reportable Glucose 155 H Calculated Osmolal ity 300 H Calcium 8.7 Magnesium 2.2 Total Bilirubin 0.6 AST 16 ALT 17 Alkaline Phosphata se 58 Total Protein 5.7 L Albumin 3.5 Globulin 2.2 Vitals: Last Vital Signs Temp 98.7 F 05/24/21 12:18 Pulse 58 L 05/24/21 14:00 Resp 21 H 05/24/21 12:19 BP 134/62 05/24/21 12:19 Pulse Ox 95 05/24/21 12:19 Discharge Plan Discharge Patient Disposition: Home Condition: Stable Prescriptions: New Eliquis 5 mg tablet 5 mg PO BID Qty: 60 RF: 3 sotalol 80 mg Tablet 40 mg PO BID@0900,2100 30 Days Qty: 60 RF: 3 Klor-Con M20 20 mEq Tablet,Er Particles/Crystals 40 meq PO DAILY 30 Days Qty: 30 RF: 3 Continued aspirin 81 mg Tablet,Delayed Release (Dr/Ec) 81 mg PO QAM RF: 0 Vitamin C 500 mg Tablet 500 mg PO QAM RF: 0 CoQ-10 100 mg Capsule 100 mg PO QAM RF: 0 hydrochlorothiazide 12.5 mg tablet 12.5 mg PO QAM RF: 0 Toc-Tsx-Skuh Tabs 1 tab PO BEDTIME RF: 0 Discharge Orders: Discharge Order (Routine); Ordered 05/24/21 Ordered By: Leon Cuadra Referrals: Carmel Reyes MD [Physician] - 07/11/21 3:45 pm (You have a Cardiology followup with Dr. Reyes at [facility] on July 11 at 3:45pm) Alee Watt FNP [Nurse Practitioner] - 06/04/21 1:00 pm (You have a followup with JENNA Salazar at [facility] on June 04 at 1:00pm) Discharge Diet: Regular Discharge Activity: Resume usual activity Patient Instructions: Potassium Supplement (By mouth) (Klor-Con, Klor-Con 10, K-Tab, K-Vescent), Sotalol (By mouth) (Betapace, Betapace AF, Sorine, Sotylize), Apixaban (By mouth) (Eliquis), A-fib (Atrial Fibrillation) (DC), Hypokalemia (DC), Opioid Safety Discharge Attestations Time Spent in Discharge Care*: less than 30 min Specific Discharge Activities: educating patient, educating and/or supporting family/caregiver, discussing with pcp/other providers, discussing with insurance case manager/social workers/dc planners, documenting/other paperwork and evaluating patient/reviewing data Status at Discharge: Cognitive status at discharge: cognitively intact, Behavioral status at discharge: cooperative, Functional status at discharge: independent ambulation Overall status at discharge: patient is back to baseline Quality Metrics Clinical Quality Measures During this hospital stay, did patient experience: None Coding Level of Care Code Acute Chg FW DC note Diagnoses Atrial fibrillation with RVR I48.91 Hypertension I10 Hypertension type: primary hypertension
--- NOTE | 2021-05-24 16:02 | PC.NURSE ---
Education provided regarding medications and appointment follow ups. No questions or concerns. VS stable upon departure.
--- NOTE | 2021-05-24 16:11 | PM.PN ---
Subjective Subjective: Interval history: Patient has not had any rigors or chills. Since the hospital admission. Telemetry shows sinus rhythm /sinus bradycardia. EKG from duration revealed a sinus bradycardia with a rate of 58 bpm. QTC was 462. She is currently on Betapace 40 mg p.o. twice daily. She had a myocardial perfusion imaging today. The results are as follows. Medications: Reviewed: Yes Vitals/I&O/Wt Last Vital Signs Temp 98.7 F 05/24/21 15:20 Pulse 58 L 05/24/21 15:20 Resp 15 05/24/21 15:20 BP 151/70 05/24/21 15:20 Pulse Ox 100 05/24/21 15:20 Weight last 48 hrs Weight 177 lb Weight 176 lb Weight 176 lb Physical Exam Narrative: EXAM NARRATIVE: GENERAL: The patient is alert and oriented times three. Not in any acute distress. HEENT: No significant pallor, icterus or lymphadenopathy. The pupils are symmetrical. Healing ecchymosis on the right side of the face. Oral cavity: There are no mucous membrane lesions. NECK: Trachea appears to be central. No masses noted. No JVD or thyromegaly appreciated. No carotid bruit. RESPIRATORY: Chest is symmetrical. No intercostals muscle retraction or any accessory muscle activation. There is no chest wall tenderness. Breath sounds are heard bilaterally. No rales or rhonchi heard. No evidence of any consolidation. BREASTS: Deferred. HEART: The PMI could not be palpated. No palpable precordial events. S1 and S2 are normal. No S3 or S4 heard. No pericardial rub or any click heard. ABDOMEN: No vessel pulsations or distention. No tenderness. No organomegaly appreciated. No abdominal bruit. Bowel sounds are normally heard. : Deferred. RECTAL: Deferred. LYMPHATIC: No lymphadenopathy noted in the neck or groin. EXTREMITIES: No edema or cyanosis. No clubbing. MUSCULOSKELETAL: No acute joint deformities or swelling SKIN: There are no significant scars or skin rash noted. NEUROPSYCHIATRIC: The patient is alert and oriented x3. Appears to be in a good mood. The higher functions are grossly within normal limits. No tremors or rigidity noted. Data : 05/24/21 03:30 05/24/21 03:30 Other Labs: Laboratory Last Values WBC 5.6 10^3/uL (4.0-10.0) 05/24/21 03:30 RBC 4.88 10^6/uL (4.1-5.3) 05/24/21 03:30 Hgb 14.4 g/dL (11.5-15.3) 05/24/21 03:30 Hct 44.3 % (37.0-47.0) 05/24/21 03:30 MCV 90.8 fl (81-99) 05/24/21 03:30 MCH 29.5 pg (28.0-34.0) 05/24/21 03:30 MCHC 32.5 g/dL (30.0-36.0) 05/24/21 03:30 RDW 13.8 % (12.1-15.1) 05/24/21 03:30 Plt Count 193 10^3/cmm (130-400) 05/24/21 03:30 MPV 10.3 fL (7.4-10.4) 05/24/21 03:30 Neut % (Auto) 54.9 % 05/24/21 03:30 Lymph % (Auto) 30.4 % 05/24/21 03:30 [place] % (Auto) 10.4 % 05/24/21 03:30 Eos % (Auto) 3.4 % 05/24/21 03:30 Baso % (Auto) 0.7 % 05/24/21 03:30 Neut # (Auto) 3.05 10^3/uL (1.8-7.7) 05/24/21 03:30 Lymph # (Auto) 1.7 10^3/uL (0.8-4.8) 05/24/21 03:30 [place] # (Auto) 0.6 10^3/uL (0.2-0.9) 05/24/21 03:30 Eos # (Auto) 0.2 10^3/uL (0.0-0.8) 05/24/21 03:30 Baso # (Auto) 0.0 10^3/uL (0.0-0.1) 05/24/21 03:30 Nucleated RBC % (auto) 0 % 05/24/21 03:30 Nucleated RBCs # 0.0 /100WBC 05/24/21 03:30 Sodium 142 mmol/L (136-145) 05/24/21 03:30 Potassium 3.6 mmol/L (3.5-5.1) 05/24/21 03:30 Chloride 106 mmol/L (98-107) 05/24/21 03:30 Carbon Dioxide 25 mmol/L (22-29) 05/24/21 03:30 Anion Gap 14.6 (5-19) 05/24/21 03:30 BUN 21 mg/dL (8-23) 05/24/21 03:30 Creatinine 0.6 mg/dL (0.5-0.9) 05/24/21 03:30 GFR Calculation Not Reportable 05/24/21 03:30 Glucose 155 mg/dL (65-115) H 05/24/21 03:30 Calculated Osmolality 300 mOsm/kg (285-295) H 05/24/21 03:30 Calcium 8.7 mg/dL (8.5-10.5) 05/24/21 03:30 Magnesium 2.2 mg/dL (1.7-2.3) 05/24/21 03:30 Total Bilirubin 0.6 mg/dL (0.15-1.2) 05/24/21 03:30 AST 16 U/L (0-32) 05/24/21 03:30 ALT 17 U/L (0-33) 05/24/21 03:30 Alkaline Phosphatase 58 IU/L (35-105) 05/24/21 03:30 Troponin T Gen 5 ng/L 40 ng/L (0-10) H 05/23/21 03:17 NT-Pro-B Natriuret Pep 823 pg/mL (0-450) H 05/23/21 03:17 Total Protein 5.7 g/dL (6.6-8.7) L 05/24/21 03:30 Albumin 3.5 g/dL (3.5-5.2) 05/24/21 03:30 Globulin 2.2 g/dL (1.3-4.6) 05/24/21 03:30 TSH 2.35 uIU/mL (0.27-4.20) 05/22/21 15:40 Urine Color Yellow (Yellow) 05/22/21 21:30 Urine Appearance Sl cloudy (CLEAR) A 05/22/21 21:30 Urine pH 5 (5-7) 05/22/21: Ur Specific [place] 1.020 (1.005-1.030) 05/22/21: Urine Protein Trace (Negative) 05/22/21: Urine Glucose (UA) Norm (Normal) 05/22/21: Urine Ketones Negative (Negative) 05/22/21: Urine Blood 2+ (Negative) H 05/22/21: Urine Nitrate Negative (Negative) 05/22/21: Urine Bilirubin Neg (Negative) 05/22/21: Urine Urobilinogen Norm mg/dL (Negative) 05/22/21: Ur Leukocyte Esterase Trace (Negative) H 05/22/21: Urine RBC 10-15 /hpf (0-2) H 05/22/21: Urine WBC 25-40 /hpf (0-5) H 05/22/21: Ur Squamous Epith Cells Rare /hpf (0-5) 05/22/21: Amorphous Sediment Not Reportable 05/22/21: Urine Bacteria 4+ /hpf (NONE) H 05/22/21: Micro: Microbiology 05/22/21: Urine Culture - Preliminary Urine,Clean Catch Gram Negative Rods Myocardial perfusion imaging: My impression: 1. Unremarkable myocardial perfusion imaging. 2. LV ejection fraction estimated to be 72%. 3. LV wall motion analysis revealing no gross wall motion abnormalities. 4. Normal LV volume. No significant coronary ischemia, based on the above findings A&P Assessment and plan (1) Atrial fibrillation with RVR: Patient is remaining in the sinus rhythm. The QTC is in the acceptable range. At this point, patient may not require any medication adjustments. She may continue on the current dose of Betapace namely 40 mg p.o. twice daily. Status: Acute (2) Left arm pain: Discussed with the patient the implication of the myocardial perfusion imaging results and further management options. Since she has no recurrence of chest pain and also since the perfusion scan did not reveal any evidence of ischemia, patient may not require any further interventions at this point. May continue the current medications. The limitations of this test were discussed. Patient understood this well. Status: Acute (3) Near syncope: Could be from the tachyarrhythmia. So far patient did not have any symptomatic bradycardia since hospital admission. Status: Acute (4) Hypertension: Currently the blood pressure is in the normal range. May continue on the current medications. Status: Acute Qualifiers: Hypertension type: primary hypertension Qualified Code(s): I10 - Essential (primary) hypertension (5) Hypokalemia: Currently she is normokalemic. May continue on the current measures. Status: Acute Additional A&P Information Other problems are as outlined before. Since the patient remained stable with no new symptoms, she may be discharged home today. Please make an appointment to be seen by the nurse practitioner next week in the office. I may see her in the clinic in [address] Khalif Pérez Medical Necessity Statement*: Possible discharge home today. Coding Level of Care Code Acute Ampoule Examiner for Fina Del Rosario Diagnoses Atrial fibrillation with RVR I48.91 Left arm pain M79.602 Near syncope R55 Hypertension I10 Hypertension type: primary hypertension Hypokalemia E87.6
--- NOTE | 2021-05-24 19:32 | NMCV_ITS ---
NM yu perf SPECT r/s* [id number] Meghana Ramirez Age: 81 Gender: F : 1940 Exam Date: 05/24/2021 07:27 Ordering Phys: Carmel Reyes MD ([email or web address]) Technologist: RONALD Hernandez Exam [facility]: [facility] Indications: Fluctuating HR, dizziness, shoulder, arm pain STRESS TEST Please see separate stress test report in [facility] for full findings IMAGE PROTOCOL Rest/Stress 1 Lexiscan Day Radiopharmaceutical Dose (mCi) Administration Site Administered by Rest: Tc-99m 10.7 IV RONALD Hernandez Sestamibi Stress:Tc-99m 32.7 IV RONALD Hernandez Sestamibi Rest: 24-May-2021 60 Discovery 630 Stress: 24-May-2021 45 Discovery 630 0.4mg Lexiscan. Supine position only as patient was unable to lay prone. SPECT RESULTS Technical Quality: Good Raw Data Analysis: Normal Image Corrections: No attenuation or motion correction applied Summed Stress Score: 0 Summed Rest Score: 0 Summed Difference Score: 0 PERFUSION FINDINGS Fairly uniform myocardial tracer uptake with no significant perfusion abnormalities FUNCTIONAL RESULTS (calculated via Gated SPECT) Stress Image LV EF (%): 72 Stress EDV (mL):64 TID: 0.9 Stress ESV (mL):18 FUNCTIONAL FINDINGS: Segmental wall motion analysis revealing no gross wall motion normalities. IMPRESSIONS 1. Unremarkable myocardial perfusion imaging. 2. LV ejection fraction estimated to be 72%. 3. LV wall motion analysis revealing no gross wall motion abnormalities. 4. Normal LV volume. No significant coronary ischemia, based on the above findings Dr Carmel Reyes MD FACC (Electronically Signed) Final Date: 24 May 2021 14:00 S
== END 2021-05-24 16:04 | disposition home or self-care (01) | DRG 310 ==
LOC: ER 15:40 → CSU 05-23 05:53
PROVIDERS: Admitting Provider Internal Medicine; Emergency Provider Family Medicine; PCP Internal Medicine; Visit Provider Internal Medicine
DX: I48.91 Unspecified atrial fibrillation (principal); E11.9 Type 2 diabetes mellitus without complications; I10 Essential (primary) hypertension; E87.6 Hypokalemia; M79.602 Pain in left arm; Z79.82 Long term (current) use of aspirin
CPT/HCPCS: 36415; 71045; 78452; 80048; 80053; 81001; 83735; 83880; 84443; 84484; 85025; 87077; 87086; 87186; 93005; 93017; 93306; 96365; 96372; 96375; 99291; A9500; J1650; J2405; J2785; J3480; J3490

== ENCOUNTER → 2021-07-11 16:00 | Outpatient (BNVA) | payer MEDICARE, SELFPAY | PROVIDERS: PCP Internal Medicine; Visit Provider Internal Medicine Cardiovascular Disease | DX: R06.02 Shortness of breath (principal); E87.6 Hypokalemia | CPT/HCPCS: 80048 ==

== ENCOUNTER → 2022-02-12 13:25 | Outpatient (BNVA) | payer MEDICARE, SELFPAY | PROVIDERS: PCP Internal Medicine; Visit Provider Internal Medicine Cardiovascular Disease | DX: I48.91 Unspecified atrial fibrillation (principal); Z79.01 Long term (current) use of anticoagulants; I10 Essential (primary) hypertension; E11.9 Type 2 diabetes mellitus without complications; R07.9 Chest pain, unspecified | CPT/HCPCS: 99214 ==

== ENCOUNTER → 2022-08-19 14:01 | Outpatient (BNVA) | payer MEDICARE, SELFPAY | PROVIDERS: PCP Internal Medicine; Visit Provider Internal Medicine Cardiovascular Disease | DX: I48.91 Unspecified atrial fibrillation (principal); Z79.01 Long term (current) use of anticoagulants; I10 Essential (primary) hypertension; E11.9 Type 2 diabetes mellitus without complications | CPT/HCPCS: 99214 ==

== ENCOUNTER → 2023-02-17 15:28 | Outpatient (BNVA) | payer MEDICARE, SELFPAY | PROVIDERS: PCP Internal Medicine; Visit Provider Internal Medicine Cardiovascular Disease | DX: I48.91 Unspecified atrial fibrillation (principal); I10 Essential (primary) hypertension; R55 Syncope and collapse; E11.9 Type 2 diabetes mellitus without complications; Z79.01 Long term (current) use of anticoagulants | CPT/HCPCS: 99214 ==

== ENCOUNTER → 2023-09-01 11:03 | Outpatient (BNVA) | payer MEDICARE, SELFPAY | PROVIDERS: PCP Internal Medicine; Visit Provider Internal Medicine Cardiovascular Disease | DX: I48.91 Unspecified atrial fibrillation (principal); I11.0 Hypertensive heart disease with heart failure; I50.9 Heart failure, unspecified; E11.36 Type 2 diabetes mellitus with diabetic cataract; E87.6 Hypokalemia | CPT/HCPCS: 99214 ==

== ENCOUNTER → 2024-02-24 11:01 | Outpatient (BNVA) | payer MEDICARE, SELFPAY | PROVIDERS: PCP Internal Medicine; Visit Provider Internal Medicine Cardiovascular Disease | DX: I48.91 Unspecified atrial fibrillation (principal); I10 Essential (primary) hypertension | CPT/HCPCS: 99213 ==

== ENCOUNTER → 2024-09-21 14:31 | Outpatient (BNVA) | payer MEDICARE, SELFPAY | PROVIDERS: PCP Internal Medicine; Visit Provider Nurse Practitioner Family | DX: I48.91 Unspecified atrial fibrillation (principal); I10 Essential (primary) hypertension | CPT/HCPCS: 99213 ==

== ENCOUNTER → 2025-05-11 14:16 | Outpatient (BNVA) | payer MEDICARE, SELFPAY | PROVIDERS: PCP Internal Medicine; Visit Provider Internal Medicine Cardiovascular Disease | DX: I48.91 Unspecified atrial fibrillation (principal); I10 Essential (primary) hypertension; M25.473 Effusion, unspecified ankle | CPT/HCPCS: 99214 ==